=== PATIENT | male | born 1985 | race Caucasian/White ===

== ENCOUNTER 2022-12-12 10:44 | Emergency (ER) | payer OTHER ==
[~2022-12-12] VITALS: Ht 180.3 cm; Wt 78.5 kg
[2022-12-12 10:51] VITALS: BP 131/66
--- NOTE | 2022-12-12 10:59 | NUR ---
COVID, FLU SWABS DONE.
--- NOTE | 2022-12-12 12:11 | NUR ---
KARL REA ATTEMPTED TO BRING PT BACK, NOPT FOUND IN LOBBY/OUTSIDE.
--- NOTE | 2022-12-12 12:17 | NUR ---
2ND ATTEMPT, NOT FOUND IN LOBBY/OUTSIDE
--- NOTE | 2022-12-12 12:23 | NUR ---
KARL REA ATTEMPTED TO BRING PT BACK, NOT FOUND IN LOBBY/OUTSIDE. PATIENT LEFT WITHOUT BEING SEEN BY DR MULLIGAN/KARL REA. NO FURTHER CARE PROVIDED FOR PATIENT.
--- NOTE | 2022-12-12 12:23 | NUR ---
Note pioraghav in ED - 12/12/22 at 1240 by [email or web address] KARL REA ATTEMPTED TO BRING PT BACK, NOT FOUND IN LOBBY/OUTSIDE. PATIENT LEFT WITHOUT BEING SEEN BY KARL REA. NO FURTHER CARE PROVIDED FOR PATIENT.
== END 2022-12-12 12:11 | disposition left against medical advice (07) ==
LOC: MED 10:44
DX: J02.9 Acute pharyngitis, unspecified (principal); Z20.822 Contact with and (suspected) exposure to COVID-19; Z53.21 Procedure and treatment not carried out due to patient leaving prior to being seen by health care provider